=== PATIENT | male | born 1960 ===

== ENCOUNTER 2022-07-05 13:05 | Outpatient (CLI) | payer BC | END 2022-07-05 13:06 | disposition home or self-care (01) | LOC: CSHLAB 13:05 | PROVIDERS: ATTEND Internal Medicine Gastroenterology | DX: Z20.822 Contact with and (suspected) exposure to COVID-19 (principal); Z12.11 Encounter for screening for malignant neoplasm of colon | CPT/HCPCS: 87811 ==

== ENCOUNTER 2022-07-08 06:41 | Day surgery (SDC) | payer BC ==
[2022-07-06 15:46] VITALS: BMI 25.0
[2022-07-08] MEDS ORDERED: Midazolam HCl 2 mg/2 ml Vial ONE (09:01)
[2022-07-08] MEDS ORDERED: PROPOFOL 40 ML ONE (09:01)
== END 2022-07-08 10:15 | disposition home or self-care (01) ==
LOC: CSHSDC 06:41
PROVIDERS: ATTEND Internal Medicine Gastroenterology
PROC: 0DBK8ZZ Excision of Ascending Colon, Via Natural or Artificial Opening Endoscopic (ICD-10-PCS; principal; 2022-07-08)
DX: Z12.11 Encounter for screening for malignant neoplasm of colon (principal); D12.2 Benign neoplasm of ascending colon; K64.9 Unspecified hemorrhoids; E78.5 Hyperlipidemia, unspecified; E03.9 Hypothyroidism, unspecified; N40.0 Benign prostatic hyperplasia without lower urinary tract symptoms; Z86.010 Personal history of colon polyps; Z20.822 Contact with and (suspected) exposure to COVID-19; Z79.899 Other long term (current) drug therapy
CPT/HCPCS: 88305; J2250; J2704